=== PATIENT | male | born 1930 | race Hispanic/Latino ===

== ENCOUNTER 2019-03-19 10:27 | Emergency (ER) | payer MEDICARE | END 2019-03-19 15:33 | disposition home or self-care (01) | LOC: EDH 10:27 | DX: Z46.89 Encounter for fitting and adjustment of other specified devices (principal); I10 Essential (primary) hypertension; G30.9 Alzheimer's disease, unspecified; F02.80 Dementia in other diseases classified elsewhere, unspecified severity, without behavioral disturbance, psychotic disturbance, mood disturbance, and anxiety; Z87.891 Personal history of nicotine dependence | CPT/HCPCS: 99281 ==